=== PATIENT | female | born 1980 | race Caucasian/White ===

== ENCOUNTER 2017-08-04 23:28 | Emergency (ER) | payer BC ==
[2017-08-05] MEDS ORDERED: Nitrofurantoin Monohydrate/Macrocrystalline 100 MG Cap PO ONE (00:16)
[2017-08-05] MEDS ORDERED: Phenazopyridine 95 MG Tab PO STA (00:24)
--- NOTE | 2017-08-05 00:31 | EDM.PDOC ---
ED HPI GENERAL MEDICAL PROBLEM - General Chief Complaint: Genitourinary Problem Stated Complaint: UTI Time Seen by Provider: 08/04/17 23:33 Source of Information: Reports: Patient, Family (), RN Notes Reviewed History Limitations: Reports: No Limitations - History of Present Illness INITIAL COMMENTS - FREE TEXT/NARRATIVE: The patient states that she developed dysuria, urinary frequency and urgency around 17:00 this evening. No nausea, vomiting, or fever. She denies aqua or flank pain. She states that she has had similar symptoms in the past, due to a UTI. The patient is sexually active. The patient's PCP is Dr. Thompson. Bladder Pain Score (Numeric/FACES): 3 - Related Data Allergies Allergy/AdvReac Type Severity Reaction Status Date / Time salicylic acid Allergy Rash Verified 08/04/17 23:33 Sulfa (Sulfonamide Allergy Rash Verified 08/04/17 23:33 Antibiotics) Home Meds: Home Meds FLUoxetine [PROzac] 10 mg PO DAILY 08/04/17 [History] Nitrofurantoin Leon/Macrocryst [Macrobid] 1 cap PO Q12H #9 cap 08/05/17 [Rx] Phenazopyridine HCl [Pyridium] 1 tab PO Q8H PRN #5 tablet 08/05/17 [Rx] Past Medical History Psychiatric History: Reports: Anxiety, Depression - Past Surgical History Female Surgical History: Reports: Breast Implant Other Surgical History Comment: Liposuction Social & Family History - Tobacco Use Smoking Status *Q: Never Smoker - Alcohol Use Alcohol Use History: No - Recreational Drug Use Recreational Drug Use: No - Living Situation & Occupation Living situation: Reports: , with Spouse, with Family (4 kids) Occupation: Employed (Dentist) ED ROS GENERAL - Review of Systems Review Of Systems: See Below Constitutional: Reports: No Symptoms HEENT: Reports: No Symptoms Respiratory: Reports: No Symptoms Cardiovascular: Reports: No Symptoms Endocrine: Reports: No Symptoms GI/Abdominal: Reports: No Symptoms : Reports: No Symptoms Musculoskeletal: Reports: No Symptoms Skin: Reports: No Symptoms Neurological: Reports: No Symptoms Psychiatric: Reports: No Symptoms Hematologic/Lymphatic: Reports: No Symptoms Immunologic: Reports: No Symptoms ED EXAM, RENAL/ - Physical Exam Exam: See Below Exam Limited By: No Limitations General Appearance: Alert, WD/WN, Anxious, Mild Distress Eye Exam: Bilateral Eye: Normal Inspection Ears: Normal External Exam, Hearing Grossly Normal Nose: Normal Inspection, No Blood Throat/Mouth: Normal Inspection, Normal Lips, Normal Voice, No Airway Compromise Head: Atraumatic, Normocephalic Neck: Normal Inspection, Full Range of Motion Respiratory/Chest: No Respiratory Distress, Lungs Clear, Normal Breath Sounds, No Accessory Muscle Use Cardiovascular: Normal Peripheral Pulses, Regular Rate, Rhythm, No Gallop, No JVD, No Murmur, No Rub GI/Abdominal: Normal Bowel Sounds, Soft, Non-Tender (even suprapubically), No Organomegaly, No Distention, No Abnormal Bruit, No Mass (Female) Exam: Deferred Rectal (Female) Exam: Deferred Back Exam: Normal Inspection, Full Range of Motion. No: CVA Tenderness (L), CVA Tenderness (R) Extremities: Normal Inspection, Normal Range of Motion, No Pedal Edema, Normal Capillary Refill Neurological: Alert, Oriented, Normal Cognition, No Motor/Sensory Deficits Psychiatric: Normal Affect Skin Exam: Warm, Dry, Intact, Normal Color, No Rash Course - Vital Signs Last Recorded V/S: Last Vital Signs Temp 36.6 C 08/04/17 23:33 Pulse 72 08/04/17 23:33 Resp 16 08/04/17 23:33 BP 127/90 08/04/17 23:33 Pulse Ox 100 08/04/17 23:33 - Orders/Labs/Meds Orders: Active Orders 24 hr Category Date Time Status CULTURE URINE [RM] Stat Lab 08/05/17 00:35 Received Labs: Laboratory Tests 08/04/17 08/04/17 Range/Units 23:40 23:40 Urine Color Light yellow (Yellow) Urine Appearance Clear (Clear) Urine pH 6.5 (5.0-8.0) Ur Specific [place] 1.010 (1.005-1.030) Urine Protein Negative (Negative) Urine Glucose (UA) Negative (Negative) Urine Ketones Negative (Negative) Urine Occult Blood 2+ H (Negative) Urine Nitrite Negative (Negative) Urine Bilirubin Negative (Negative) Urine Urobilinogen 0.2 (0.2-1.0) Ur Leukocyte Esterase 2+ H (Negative) Urine RBC 0-5 (0-5) /hpf Urine WBC 20-30 H (0-5) /hpf Urine WBC Clumps Few (NOT SEEN) /hpf Ur Epithelial Cells Not seen (0-5) /hpf Urine Bacteria Occasional (FEW) /hpf Urine Mucus Not seen (FEW) /hpf Urine HCG, Qual Negative (NEGATIVE) Meds: Medications Discontinued Medications Generic Name Dose Route Start Last Admin Trade Name Freq PRN Reason Stop Dose Admin Nitrofurantoin Macrocrystals 100 mg 08/05/17 00:16 08/05/17 00:29 Macrobid PO 08/05/17 00:17 100 mg ONETIME ONE Administration Phenazopyridine HCl 95 mg 08/05/17 00:24 08/05/17 00:29 Urinary Pain Relief PO 08/05/17 00:25 95 mg ONETIME STA Administration Phenazopyridine HCl 95 mg 08/05/17 00:44 08/05/17 00:47 Urinary Pain Relief PO 08/05/17 00:45 95 mg ONETIME ONE Administration - Re-Assessments/Exams Free Text/Narrative Re-Assessment/Exam: 08/05/17 00:25 The patient's urinalysis demonstrates 2+ leukocyte esterase, 20-50 WBCs, and only occasional bacteria, nevertheless I believe the urinalysis is consistent with a UTI, and I have therefore started her on Macrobid and Pyridium. I have ordered a urine culture, and would like the patient to follow-up with Dr. Thompson on 08/08/2017 to check on the urine culture results. Departure - Departure Time of Disposition: 00:29 Disposition: Home, Self-Care 01 Condition: Good Clinical Impression: UTI (urinary tract infection) - Discharge Information Prescriptions: Nitrofurantoin Leon/Macrocryst [Macrobid] 1 cap PO Q12H #9 cap Phenazopyridine HCl [Pyridium] 1 tab PO Q8H PRN #5 tablet PRN Reason: Dysuria Instructions: Urinary Tract Infection, Adult Referrals: Kassidy Talbot MD [Primary Care Provider] - Forms: ED Department Discharge Additional Instructions: You were seen in the emergency room for burning urination, urinary frequency, and urinary urgency. Workup in the ER included a urinalysis and urine test. Your urinalysis is consistent with a urinary tract infection. Your urine test was negative. You have been started on the antibiotic Macrobid (nitrofurantoin). Take one tablet every 12 hours, as prescribed. Finish the entire prescription unless told otherwise by Dr. Thompson. You have been started on the pain medicine Pyridium. Take one tablet every 8 hours for 2 days, or one tablet every 12 hours for 3 days - your choice. Pyridium will turn your urine orange - this is normal. Stay well hydrated. It is important that you follow-up with the office of Dr. Thompson on 08/08/2017, to check on your urine culture results, to make sure that you are on the right antibiotic. If any other problems, please do not hesitate to return to the ER. - My Orders Last 24 Hours: My Active Orders 08/05/17 00:35 CULTURE URINE [RM] Stat - Assessment/Plan Last 24 Hours: My Active Orders 08/05/17 00:35 CULTURE URINE [RM] Stat
[2017-08-05] MEDS ORDERED: Phenazopyridine 95 MG Tab PO ONE (00:44)
== END 2017-08-05 00:47 | disposition home or self-care (01) ==
LOC: JD.ED 23:28
DX: N39.0 Urinary tract infection, site not specified (principal); Z88.2 Allergy status to sulfonamides; Z79.899 Other long term (current) drug therapy; Z88.8 Allergy status to other drugs, medicaments and biological substances
CPT/HCPCS: 81001; 81025; 87086; 87088; 87186; 99283; A9270